=== PATIENT | female | born 2005 | race Caucasian/White ===

== ENCOUNTER 2024-09-19 12:31 | Emergency (ER) | payer OTHER, SELFPAY ==
[2024-09-19 12:32] VITALS: BMI 25.8
[2024-09-19 12:42] VITALS: BP 144/90; PULSE 101; RESP 18; TEMP 37.2; O2SAT 97
--- NOTE | 2024-09-19 13:02 | EDNOTE_ITS ---
ED Female Urogenital RME/HPI General Chief complaint: Urogenital-Female Stated complaint: PAINFUL/BURNING WITH URINATION XSINCE MONDAY Time Seen by Provider: 09/19/24 12:35 Arrival date/time: 09/19/24 12:31 RME / HPI RME / HPI Narrative: 19-year-old with no significant medical history, came in for evaluation regarding dysuria and frequency. Onset of symptoms for the last 3 days as worsening low back pain, described as dull ache, severity mild. Patient denies any fever denies any vomiting denies any other complaints. No medication was taken prior to arrival Related Data Previous Rx's ?Medication ?Instructions ?Recorded phenazopyridine 200 mg tablet 200 mg PO TID 6 doses #6 tabs 09/19/24 (Pyridium) Allergies Allergy/AdvReac Type Severity Reaction Status Date / Time No Known Allergies Allergy Verified 09/19/24 12:34 Review of Systems Review of Systems Narrative Review of Systems: Review of system reviewed and within normal limits except mentioned in HPI ED Exam Narrative Physical exam: VITAL SIGNS: Reviewed. GENERAL APPEARANCE: Alert and interactive, follows commands, no acute distress, HEAD AND FACE: Non-traumatic. ENT: PERRL, pink conjunctivitis, eyelid no trauma, Mucous membrane moist. NECK: Supple, nontender, no nuchal rigidity. CHEST: No tenderness, no crepitus, no paradoxical movement, no retractions. LUNGS: Clear, well ventilated, symmetric, no rales, no wheezing, no ronchi, no stridor, good breath sounds bilaterally. HEART: Regular rate, regular rhythm, no murmur, no gallops. ABDOMEN: Soft, positive bowel sounds, nondistended, no guarding, nontender, no rebound, no masses, RECTAL: Deferred. GENITAL: Deferred. NEUROLOGICAL: Gross motor function intact sensory function intact, Appropriate for age. MUSCULOSKELETAL: low back tenderness, full range of motion. EXTREMITIES: Nontender, full range of motion. SKIN: Color pink, dry, no rash, no lacerations, no abrasions, no contusions. LYMPHATICS: Deferred. Course Quality Measures none Orders Category Date Time Status HCG Qualitative,Urine Stat Lab 09/19/24 13:12 Completed UA, C/S IF [Urinalysis, C/S if Indicated] Stat Lab 09/19/24 13:12 Completed Vital Signs Vital signs: Vital Signs Temperature 98.9 F 09/19/24 12:42 Pulse Rate 101 H 09/19/24 12:42 Respiratory Rate 18 09/19/24 12:42 Blood Pressure 144/90 H 09/19/24 12:42 Pulse Oximetry (%) 97 09/19/24 12:42 Oxygen Delivery Method Room Air 09/19/24 12:42 Urogenital - Female MDM Narrative MDM Narrative:: 19-year-old with no significant medical history, came in for evaluation regarding dysuria and frequency. Onset of symptoms for the last 3 days as worsening low back pain, described as dull ache, severity mild. Patient denies any fever denies any vomiting denies any other complaints. No medication was taken prior to arrival Patient urinalysis is negative for UTI except for hematuria. Results discussed with the patient. Patient data External records reviewed:: None Clinical information provided by:: patient Social determinants that could affect healthcare access:: none Patient has the following chronic illnesses:: None How is presenting disease/condition affected by chronic disease/condition?: no chronic disease Evaluation data The following diagnostics were reviewed and interpreted by me:: lab results Lab and/or radiology exams considered but not ordered:: None Interpretation Summary: Urinalysis no UTI Medications / Prescriptions Medications or Prescriptions considered but not ordered:: None Medication administrations:: None Consultations Consultation(s) initiated? (list below): No Diagnosis Urogenital Female Differential Diagnosis: urinary tract infection and cystitis Most likely diagnosis given after review of the tests above:: Dysuria Admission Indicated Admission indicated?: not indicated Admission Request Was there a request for admission?: No Disposition Plan Disposition Plan: Discharge Discharge Attestation Discharge Attestation: The patient was given an opportunity to ask questions and understood the discharge instructions. Discharge instructions specifically effects, indications for sooner follow up or return to the emergency department, and the expected course of current diagnosis. Patient condition: Stable Discharge Plan Plan Patient Disposition: HOME (Self Care) Discharge Disposition comment: stable Prescriptions/Referrals Prescriptions/Med Rec: New phenazopyridine [Pyridium] 200 mg tablet 200 mg PO TID Qty: 6 0RF Referrals: No Primary/Family,Physician [Primary Care Provider] - In 1 week Problem List Clinical Impression: Dysuria Patient/Caregiver Discharge Instructions Discharge Activity: activity as tolerated Education Materials: Dysuria Additional Instructions: Thank you for the opportunity for serving you today. You are stable for discharged . You are advised to: Follow-up with your PCP in 1 to 2 days Return to ED for worsening of symptoms Increase oral fluids Take medication as prescribed Print Language: Khmer Stand Alone Forms: Dominique Award Info., Patient Portal Info Letter PA/PALLIATIVE CARE NURSE Supervising Physician OLIVIA/LUCA Supervising Physician: MD Roque
[2024-09-19 13:21] LABS: Collection Type, Urine Clean Catch
[2024-09-19 13:31] LABS: Bacteria,Urine Rare; Bilirubin,Urine Negative (Negative); Blood,Urine 3+ (Negative); Color,Urine Lt-Yellow (Lt Yel-Yel); Culture Indicated,Urine Not Indicated; Glucose, Urine Negative (Negative); Ketones,Urine Negative (Negative); Leukocyte Esterase,Urine Positive (Negative); Nitrite,Urine Negative (Negative); Protein,Urine Negative (Neg - Trace); RBC,Urine 1 /hpf (0-3); Specific Gravity,Urine 1.008 (1.001-1.035); Squamous Epithelial Cell,Urine 1 /hpf (0-5); Urobilinogen,Urine Negative mg/dL (0.0-1.0); WBC,Urine < 1 /hpf (0-5)
[2024-09-19 13:36] LABS: HCG Qualitative,Urine Negative
[2024-09-19 13:53] LABS: Clarity,Urine Hazy (Clear/Hazy)
== END 2024-09-19 16:50 | disposition home or self-care (01) ==
PROVIDERS: Nurse Practitioner Family; Emergency Provider Emergency Medicine
DX: R30.0 Dysuria (principal)
CPT/HCPCS: 81001; 81025; 99283

== ENCOUNTER 2024-09-22 16:39 | Emergency (ER) | payer OTHER, SELFPAY ==
--- NOTE | 2024-09-22 | XR_ITS ---
Examination: CT abdomen and pelvis without contrast. Coronal 3-D reconstructions. Sagittal 2-D reconstructions. Date and time of exam:September 22, 2024 1709 hours INDICATIONS: Lower abdominal pain and lower back pain and nausea today CTDI: vol (mGy): 9.35 DLP: (mGycm): 475 Technique: Axial images of the abdomen have been obtained, 3 mm slice thickness Intravenous contrast material has not been administered. Low dose protocols were performed. One or more of the following dose reduction techniques were used; automated exposure control, adjustment of the mA and/or KV according to patient size, use of iterative reconstruction technique. Findings: No focal liver or splenic lesions Contracted gallbladder No pancreatic or adrenal mass No renal or ureteral calculi Minimal wall thickening right ureter and thickening of the urinary bladder Aorta normal size No pericecal inflammatory change No diverticulitis Retroverted uterus No adnexal mass L5-S1 4 mm central lumbar disc bulge IMPRESSION: Findings most consistent with right urinary tract infection and cystitis L5-S1 4 mm central lumbar disc bulge
[2024-09-22 16:42] LABS: Bilirubin,Urine Negative (Negative); Blood,Urine 2+ (Negative); Clarity,Urine Turbid (Clear/Hazy); Collection Type, Urine Clean Catch; Color,Urine Yellow (Lt Yel-Yel); Culture Indicated,Urine Yes; Glucose, Urine Negative (Negative); Ketones,Urine Negative (Negative); Leukocyte Esterase,Urine Positive (Negative); Nitrite,Urine Negative (Negative); PH,Urine 6.5 (5.0-7.0); Protein,Urine Trace (Neg - Trace); RBC,Urine 163 /hpf (0-3); Specific Gravity,Urine 1.026 (1.001-1.035); Squamous Epithelial Cell,Urine 1 /hpf (0-5); Transitional Epi Cells,Urine 2 /hpf (0-5); Urobilinogen,Urine Negative mg/dL (0.0-1.0); WBC,Urine 291 /hpf (0-5)
[2024-09-22 16:43] LABS: HCG Qualitative,Urine Negative
--- NOTE | 2024-09-22 17:44 | PD.EDADULT ---
ED General RME/HPI General Time Seen by Provider: 09/22/24 17:00 Arrival date/time: 09/22/24 16:39 CC: Right flank pain with hematuria HPI ongoing for the past 4 days was seen here 4 days ago discharged home was told to follow-up return if it got worse patient denies fever. But persistent intermittent nausea with vomiting, no diarrhea. Patient is awake alert oriented in mild discomfort but not in any acute distress. Localized pain 6-7 out of 10 scale. Related Data Previous Rx's ?Medication ?Instructions ?Recorded phenazopyridine 200 mg tablet 200 mg PO TID 6 doses #6 tabs 09/19/24 (Pyridium) cephalexin 500 mg capsule 500 mg PO BID #14 caps 09/22/24 Allergies Allergy/AdvReac Type Severity Reaction Status Date / Time No Known Allergies Allergy Verified 09/19/24 12:34 Review of Systems Review of Systems Narrative Review of Systems: GEN: No fever, no chills, no weight loss EYES: No discharge, no visual changes, no pain HEENT: No ear pain, no congestion, no sore throat PULM: No shortness of breath, no cough, no congestion CV: No chest pain, no dyspnea on exertion, no palpitations GI: + nausea, + vomiting, no diarrhea, no pain, no constipation : No frequency, no urgency, no dysuria MUSC/SKEL: No joint pain, + back pain SKIN: No rash PSYCH: No hallucinations, no depression HEME/LYMPH: No easy bleeding or bruising tendencies NEURO: No weakness, no headache ED Exam Narrative Physical exam: [General In mild discomfort not in any acute distress Head normocephalic HEENT: Within acceptable limits Neck is supple nontender Chest equal chest rise nontender to palpation Respiratory: Clear to auscultation no wheezes crackles or rubs CV: Rate rhythm is regular no murmurs rubs or clicks Abdomen is distended secondary to body habitus soft nontender no masses positive bowel sounds all 4 quadrants Back: Right CVA tenderness minimal left CVA tenderness, no spinous process tenderness from cervical spine thoracic and lumbar spine Skin: Intact no petechiae rash induration ulceration or crepitus Extremities: Moving all extremity against resistance cap refill less than 2 seconds neurosensory intact Neuro: Awake alert oriented x3 Glascow coma 15 no focal deficits] Course Quality Measures none Orders Category Date Time Status CT abdomen pelvis wo con Urgent Exams 09/22/24 Completed HCG Qualitative,Urine Routine Lab 09/22/24 16:02 Completed Urinalysis, C/S if Indicated Routine Lab 09/22/24 16:02 Completed Urine Culture Routine Lab 09/22/24 16:02 Received [id number] [Rocephin] 1,000 mg Med 09/22/24 17:42 Ordered Lidocaine 1% 20 ml [Xylocaine 1% 20 ML] 2.1 ml IM X1 Discharge Plan Plan Patient Disposition: HOME (Self Care) Patient condition on transfer: Stable Prescriptions/Referrals Prescriptions/Med Rec: New cephalexin 500 mg capsule 500 mg PO BID Qty: 14 0RF No Action phenazopyridine [Pyridium] 200 mg tablet 200 mg PO TID Qty: 6 0RF Referrals: Adin Saba MD [Physician] - In 1 week No Primary/Family,Physician [Primary Care Provider] - In 1 week Problem List Clinical Impression: Hematuria, UTI (urinary tract infection) Patient/Caregiver Discharge Instructions Education Materials: ED CYSTITIS Female Adult Print Language: Turkish Stand Alone Forms: [employer] Award Info., Work/School Release, Patient Portal Info Letter PA/DIGITAL COORDINATOR Supervising Physician PA/DIGITAL COORDINATOR Supervising Physician: Yinka VALENZUELAP [facility] Clinical Information Provided by: patient Medical Records reviewed [facility] Meds/Rx considered, not ordered None Labs/Rad/Tests considered, not ordered None Labs Labs: interpreted by ky Lab(s) Interpretation(s): Urine is turbid, pH at 1.026. RBCs of 163 with WBCs of 291 no squamous epithelial or leukocyte esterase positive. Imaging Imaging interpretation: interpreted by me Imaging Interpretation(s): CT of the abdomen pelvis without contrast shows probably right cystitis Medication Administration(s) Medication Administration History Ceftriaxone Sodium 1,000 mg/ (Lidocaine HCl 2.1 ml) 0 mg IM X1 ONE Stop: 09/22/24 17:43
[2024-09-22] MEDS: cefTRIAXone 1,000 MG, LIDOCAINE 1% 20 ML 2.1 ML IM (17:50)
== END 2024-09-22 18:00 | disposition home or self-care (01) ==
PROVIDERS: Emergency Provider Emergency Medicine
DX: N39.0 Urinary tract infection, site not specified (principal); R31.9 Hematuria, unspecified
CPT/HCPCS: 74176; 81001; 81025; 87077; 87086; 87186; 96372; 99284; J0696; J3490